=== PATIENT | male | born 1980 | race Caucasian/White ===

== ENCOUNTER 2021-02-13 07:43 | Emergency (ER) | payer OTHER ==
[2021-02-13 08:31] LABS: HEMOGLOBIN 15.8 gm/dl (14.0-17.5); RED BLOOD COUNT 5.1 M/UL (4.20-5.50); WHITE BLOOD COUNT 6.1 K/UL (4.5-11.0)
[2021-02-13 08:51] LABS: BUN/CREATININE RATIO 19 (0-10)
[2021-02-13] MEDS ORDERED: ZOFRAN ODT 4 MG4 MG SL ×2 (11:06→11:07)
[2021-02-13] MEDS ORDERED: IBU800 MG PO ×2 (11:06→11:07)
[2021-02-13] MEDS ORDERED: OMNICEF 300 MG300 MG PO (11:12)
== END 2021-02-13 12:22 | disposition home or self-care (01) ==
LOC: ER1 07:43
PROVIDERS: Emergency Medicine
DX: N13.2 Hydronephrosis with renal and ureteral calculous obstruction (principal)
CPT/HCPCS: 80053; 81001; 83690; 85025; 96374; 96375; 99284; J0696; J1885; J2405; J7030

== ENCOUNTER → 2021-02-25 | Outpatient (CLI) | payer OTHER ==
[~2021-02-25] MED LIST: IBU800 MG PO; OMNICEF 300 MG300 MG PO; ZOFRAN ODT 4 MG4 MG SL
== END ==
LOC: CT 11:32
DX: N28.89 Other specified disorders of kidney and ureter (principal)
CPT/HCPCS: Q9967

== ENCOUNTER 2021-06-15 12:10 | Emergency (ER) | payer OTHER ==
[2021-06-15 13:43] LABS: HEMOGLOBIN 15.3 gm/dl (14.0-17.5); RED BLOOD COUNT 5.05 M/UL (4.20-5.50); WHITE BLOOD COUNT 8.9 K/UL (4.5-11.0)
[2021-06-15 14:02] LABS: BUN/CREATININE RATIO 14 (0-10)
[2021-06-15] MEDS ORDERED: HYDROCODON-ACE1 EAC4 PO (16:17)
== END 2021-06-15 18:00 | disposition home or self-care (01) ==
LOC: ER1 12:10
PROVIDERS: Physician Assistant
DX: N13.2 Hydronephrosis with renal and ureteral calculous obstruction (principal); I10 Essential (primary) hypertension
CPT/HCPCS: 80053; 81001; 85025; 85652; 86140; 96374; 96375; 99284; J0696; J1170

== ENCOUNTER → 2021-07-06 | Outpatient (CLI) | payer OTHER ==
[~2021-07-06] MED LIST changes: +ABILIFY 2 MG TAB2 MG PO; +BREO ELLIPTA 11 EACH INH; +FLOMAX 0.4 MG0.4 MG PO; +HYDROCHLOROTH12.5 MG PO; +HYDROCODON-ACE1 EAC4 PO; +LAMOTRIGINE200 MG PO; +LISINOPRIL10 MG PO; +LORATADINE10 MG PO; +PROZAC40 MG PO; +STRATTERA60 MG PO; +VITAMIN E180 MG PO; +[UNRECOGNIZED DRUG - OTHER] PO
[2021-07-06 11:08] LABS: HEMOGLOBIN 15.3 gm/dl (14.0-17.5); RED BLOOD COUNT 4.79 M/UL (4.20-5.50); WHITE BLOOD COUNT 6.6 K/UL (4.5-11.0)
[2021-07-06 11:27] LABS: BUN/CREATININE RATIO 13 (0-10)
== END ==
LOC: OPSV2 10:00
PROVIDERS: Anesthesiology; Orthopaedic Surgery
DX: Z01.818 Encounter for other preprocedural examination (principal); G56.01 Carpal tunnel syndrome, right upper limb
CPT/HCPCS: 36415; 71046; 80048; 85025; 93005

== ENCOUNTER → 2021-07-11 | Day surgery (SDC) | payer OTHER ==
[~2021-07-11] VITALS: Ht 175.3 cm; Wt 124.7 kg
[~2021-07-11] MED LIST changes: +CHANTIX PO; +HYDROCODON-ACE1 EAC2 PO
== END | disposition home or self-care (01) ==
LOC: OR 05:28
DX: G56.01 Carpal tunnel syndrome, right upper limb (principal); I10 Essential (primary) hypertension; E78.5 Hyperlipidemia, unspecified; R73.03 Prediabetes; N20.0 Calculus of kidney; F17.210 Nicotine dependence, cigarettes, uncomplicated; Z85.528 Personal history of other malignant neoplasm of kidney; Z85.819 Personal history of malignant neoplasm of unspecified site of lip, oral cavity, and pharynx; Z20.822 Contact with and (suspected) exposure to COVID-19
CPT/HCPCS: 82962; J0690; J1100; J2250; J2405; J2704; J3010; J7120

== ENCOUNTER 2021-10-20 15:58 | Emergency (ER) | payer OTHER ==
[2021-10-20 16:19] LABS: HEMOGLOBIN 15.8 gm/dl (14.0-17.5); RED BLOOD COUNT 5.09 M/UL (4.20-5.50); WHITE BLOOD COUNT 10.3 K/UL (4.5-11.0)
[2021-10-20 16:38] LABS: BUN/CREATININE RATIO 16 (0-10)
[2021-10-20] MEDS ORDERED: HYDROCODON-ACE1 EAC4 PO (21:13)
== END 2021-10-20 21:35 | disposition home or self-care (01) ==
LOC: ER1 15:58
PROVIDERS: Student in an Organized Health Care Education/Training Program
DX: N13.2 Hydronephrosis with renal and ureteral calculous obstruction (principal); E11.9 Type 2 diabetes mellitus without complications; I10 Essential (primary) hypertension; F17.210 Nicotine dependence, cigarettes, uncomplicated; Z87.442 Personal history of urinary calculi
CPT/HCPCS: 80053; 81001; 83690; 85025; 96374; 96375; 99284; J1170; J2405